=== PATIENT | male | born 1965 | race African-American/Black ===

== ENCOUNTER 2016-11-28 17:57 | Emergency (ER) | payer OTHER ==
[2016-11-28] MEDS ORDERED: IBUPROFEN 800 MG TABLET PO ONE (18:28)
--- NOTE | 2016-11-28 18:29 | ER Document Report ---
ED Medical Screen (RME) - General Chief Complaint: Heat Exposure Stated Complaint: POSSIBLE HEAT EXHAUSTION Time Seen by Provider: 11/28/16 18:21 Mode of Arrival: Wheelchair Information source: Patient Notes: 51-year-old male presents with complaints of generalized body aches feeling warm difficulty urinating and the cough I have greeted and performed a rapid initial assessment of this patient. A comprehensive ED assessment and evaluation of the patient, analysis of test results and completion of the medical decision making process will be conducted by additional ED providers. PHYSICAL EXAMINATION: GENERAL: Well-appearing, well-nourished and in no acute distress. Febrile HEAD: Atraumatic, normocephalic. EYES: Pupils equal round extraocular movements intact, conjunctiva are normal. ENT: Nares patent NECK: Normal range of motion LUNGS: No respiratory distress Musculoskeletal: Normal range of motion NEUROLOGICAL: Normal speech, normal gait. PSYCH: Normal mood, normal affect. SKIN: Warm, Dry, normal turgor, no rashes or lesions noted. TRAVEL OUTSIDE OF THE [place] IN LAST 30 DAYS: No - Related Data Allergies/Adverse Reactions: Penicillins Allergy (Verified 11/28/16 18:23) shellfish derived Allergy (Verified 11/28/16 18:23) Past Medical History Renal/ Medical History: Denies: Hx Peritoneal Dialysis GI Medical History: Reports: Hx Gastroesophageal Reflux Disease Physical Exam - Vital signs Vitals: Temp Pulse Resp BP Pulse Ox 100.5 F H 110 H 20 113/69 97 11/28/16 18:02 11/28/16 18:02 11/28/16 18:02 11/28/16 18:02 11/28/16 18:02 Course - Vital Signs Vital signs: Temp Pulse Resp BP Pulse Ox 100.5 F H 110 H 20 113/69 97 11/28/16 18:02 11/28/16 18:02 11/28/16 18:02 11/28/16 18:02 11/28/16 18:02
[2016-11-28 18:50] LABS: HEMATOCRIT 46.2 % (37.9-51.0); HEMOGLOBIN 14.9 g/dL (13.5-17.0); HGB HCT DIFFERENCE -1.5; MEAN CORPUSCULAR HEMOGLOBIN 24.5 pg (27.0-33.4); MEAN CORPUSCULAR HGB CONC 32.2 g/dL (32.0-36.0); MEAN CORPUSCULAR VOLUME 76 fl (80-97); RED BLOOD COUNT 6.08 10^6/uL (4.35-5.55); RED CELL DISTRIBUTION WIDTH 14.9 % (11.5-14.0); WHITE BLOOD COUNT 18.8 10^3/uL (4.0-10.5)
[2016-11-28 19:07] LABS: ALANINE AMINOTRANSFERASE 45 U/L (21-72); ALBUMIN 3.7 g/dL (3.5-5.0); ALKALINE PHOSPHATASE 78 U/L (38-126); ANION GAP 12 (5-19); ASPARTATE AMINO TRANSFERASE 27 U/L (17-59); BILIRUBIN,DIRECT 0.2 mg/dL (0.0-0.4); BILIRUBIN,TOTAL 1.1 mg/dL (0.2-1.3); BLOOD UREA NITROGEN 13 mg/dL (7-20); CALCIUM 8.6 mg/dL (8.4-10.2); CARBON DIOXIDE 24 mmol/L (22-30); CHLORIDE 101 mmol/L (98-107); CREATININE RESULT 1.13 mg/dL (0.52-1.25); GLUCOSE 99 mg/dL (75-110); LIPASE 80.8 U/L (23-300); POTASSIUM 3.7 mmol/L (3.6-5.0); SODIUM 136.8 mmol/L (137-145); TOTAL PROTEIN 6.4 g/dL (6.3-8.2)
[2016-11-28 19:08] LABS: BAND NEUTROPHILS % (MANUAL) 9 % (3-5); BASOPHILS % (MANUAL) 0 % (0-2); EOSINOPHILS % (MANUAL) 0 % (0-6); LYMPHOCYTES % (MANUAL) 6 % (13-45); TOTAL CELLS COUNTED 100
[2016-11-28 19:09] LABS: HYPOCHROMASIA 1+; MICROCYTOSIS 1+; OVALOCYTES SLIGHT; POIKILOCYTOSIS 1+; TARGET CELLS SLIGHT; TEAR DROP CELLS SLIGHT
--- NOTE | 2016-11-28 19:20 | RADIOLOGY REPORT (SQ) ---
EXAM DESCRIPTION: CHEST PA/LAT COMPLETED DATE/TIME: 11/28/2016 6:56 pm REASON FOR STUDY: cough fever COMPARISON: None. NUMBER OF VIEWS: Two view. TECHNIQUE: Frontal and lateral radiographic views of the chest acquired. LIMITATIONS: None. FINDINGS: LUNGS AND PLEURA: Peribronchial cuffing and interstitial changes. No consolidation, effus ion, or pneumothorax. MEDIASTINUM AND HILAR STRUCTURES: No masses. No contour abnormalities. HEART AND VASCULAR STRUCTURES: Heart normal in size and contour. No evidence for failure. BONES: No acute findings. HARDWARE: None in the chest. OTHER: No other significant finding. IMPRESSION: REACTIVE AIRWAY DISEASE VERSUS VIRAL SYNDROME. NO CONSOLIDATION. TECHNICAL DOCUMENTATION: JOB ID: [id number] [employer]- All Rights Reserved
[2016-11-28] MEDS ORDERED: NORMAL SALINE 1000 ML 1,000 ML IV ONE (19:59)
[2016-11-28] MEDS ORDERED: DOXYCYCLINE HYCLATE 100 MG TABLET PO ONE (20:00)
--- NOTE | 2016-11-28 20:00 | ER Document Report ---
ED General - General Chief Complaint: Heat Exposure Stated Complaint: POSSIBLE HEAT EXHAUSTION Time Seen by Provider: 11/28/16 18:21 Mode of Arrival: Wheelchair Notes: Patient is a 51-year-old male without past medical history who presents with 24 hours of general malaise, body aches, headache and a feeling of chills. Patient had similar symptoms in the past with heat exhaustion and does work outside on a regular basis. She has been trying to treat his symptoms by drinking plenty of water but this has not helped. Nothing worsens his symptoms. He denies any cough, shortness of breath, neck pain, altered mental status, weakness, numbness, pain with urination, abdominal pain or any rashes or lesions. He does work outside regularly and states that he has been frequently exposed to ticks and other insects. He describes his headache as a dull, mild headache in the bifrontal region. This has been gradual in onset. It got progressively worse since starting but has now improved after receiving ibuprofen. No known sick contacts. He has not seen his primary care doctor regarding today's concerns. TRAVEL OUTSIDE OF THE [place] IN LAST 30 DAYS: No - Related Data Allergies/Adverse Reactions: Penicillins Allergy (Verified 11/28/16 18:23) shellfish derived Allergy (Verified 11/28/16 18:23) Past Medical History - General Information source: Patient - Social History Smoking Status: Never Smoker Frequency of alcohol use: None Drug Abuse: None Lives with: Spouse/Significant other Family History: Reviewed & Not Pertinent Patient has suicidal ideation: No Patient has homicidal ideation: No Renal/ Medical History: Denies: Hx Peritoneal Dialysis GI Medical History: Reports: Hx Gastroesophageal Reflux Disease Review of Systems - Review of Systems Notes: Constitutional: Positive for fever. HENT: Negative for sore throat. Eyes: Negative for visual changes. Cardiovascular: Negative for chest pain. Respiratory: Negative for shortness of breath. Gastrointestinal: Negative for abdominal pain, vomiting or diarrhea. Genitourinary: Negative for dysuria. Musculoskeletal: Negative for back pain. Skin: Negative for rash. Neurological: Positive for headaches, negative for weakness or numbness. 10 point ROS negative except as marked above and in HPI. Physical Exam - Vital signs Vitals: Temp Pulse Resp BP Pulse Ox 100.5 F H 110 H 20 113/69 97 11/28/16 18:02 11/28/16 18:02 11/28/16 18:02 11/28/16 18:02 11/28/16 18:02 Interpretation: Tachycardic, Febrile Notes: PHYSICAL EXAMINATION: GENERAL: Well-appearing, well-nourished and in no acute distress. HEAD: Atraumatic, normocephalic. EYES: Pupils equal round and reactive to light, extraocular movements intact, sclera anicteric, conjunctiva are normal. ENT: nares patent, oropharynx clear without exudates. Mildly dry mucous membranes. NECK: Normal range of motion, supple without lymphadenopathy, no nuchal rigidity. Full flexion extension without any discomfort. LUNGS: Breath sounds clear to auscultation bilaterally and equal. No wheezes rales or rhonchi. HEART: Regular rate and rhythm without murmurs ABDOMEN: Soft, nontender, normoactive bowel sounds. No guarding, no rebound. No masses appreciated. EXTREMITIES: Normal range of motion, no pitting or edema. No cyanosis. NEUROLOGICAL: No focal neurological deficits. Moves all extremities spontaneously and on command. PSYCH: Normal mood, normal affect. SKIN: Warm, Dry, normal turgor, no rashes or lesions noted. Course - Re-evaluation Re-evalutation: 11/28/16 19:56 Patient presents with 24 hours of generalized body aches, nausea without vomiting, a mild bifrontal headache, and fever. States he feels like he has in the past had heat exhaustion although he does not clinically appear dehydrated on exam. Laboratories are remarkable for leukocytosis with an associated bandemia patient has no obvious infectious source on exam. Chest x-ray is clear without evidence of a pneumonia. He is clinically unlikely to have a urinary tract infection as he has no risk factors for this and denies any dysuria. He has no focal abdominal pain to suggest an acute intra-abdominal pathology is a trigger for today's symptoms and vital sign derangements. Specifically has no pain to the right lower quadrant or right upper quadrant to suggest an acute appendicitis or biliary pathology. No risk factors for mesenteric ischemia and again he denies any significant abdominal pain. Low clinical suspicion for a meningitis as patient denies any neck pain or meningismus, and is without any altered mental status, photophobia or phonophobia. He does complain of a very mild bifrontal headache which is similar to headaches he has had in the past and has resolved with iubuprofen. In agreement with avoiding LP at this time given low clinical likelyhood for bacterial meningitis or encephalitis. 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 11/28/16 21:24 Patient continues to remain clinically well in appearance. Will plan for empiric treatment with doxycycline for 14 days and close outpatient follow-up. I have reviewed at length with the patient that he needs to return to the emergency department immediately should have clinical worsening of his symptoms particularly his headache, or any confusion that could indicate that he is clinically worsening and could possibly require inpatient admission. At this time will discharge with return precautions and follow-up recommendations. Verbal discharge instructions given a the bedside and opportunity for questions given. Medication warnings reviewed. Patient is in agreement with this plan and has verbalized understanding of return precautions and the need for primary care follow-up in the next 24-72 hours. - Vital Signs Vital signs: Temp Pulse Resp BP Pulse Ox 100.5 F H 110 H 18 118/68 98 11/28/16 18:02 11/28/16 18:02 11/28/16 21:46 11/28/16 21:46 11/28/16 21:46 - Laboratory Result Diagrams: 11/28/16 18:42 11/28/16 18:42 Laboratory results interpreted by me: 11/28/16 11/28/16 18:42 18:42 WBC 18.8 H RBC 6.08 H MCV 76 L MCH 24.5 L RDW 14.9 H Seg Neuts % (Manual) 82 H Band Neutrophils % 9 H Lymphocytes % (Manual) 6 L Monocytes % (Manual) 2 L Abs Neuts (Manual) 17.1 H Sodium 136.8 L - Diagnostic Test Radiology reviewed: Image reviewed, Reports reviewed Radiology results interpreted by me: 11/28/16 20:00 Chest x-ray: No acute infiltrate or pneumothorax Discharge - Discharge Clinical Impression: Fever of undetermined origin, [place] spotted fever Condition: Good Disposition: HOME, SELF-CARE Additional Instructions: The exact cause of your symptoms today is uncertain, but given what we have discussed today your being empirically treated with doxycycline for [place] Spotted fever. This is a tickborne illness that is very common in [place]. Please take all the antibiotics even if you are feeling better. Please return to the emergency department immediately if you develop worsening of your headache, confusion, persistent vomiting, or have any other symptoms that are worrisome to you. Please follow-up with your primary care doctor in the next 24-48 hours. Prescriptions: Doxycycline Hyclate 100 mg PO BID #28 capsule
[2016-11-28 21:20] LABS: APPEARANCE,URINE CLEAR; BILIRUBIN,URINE NEGATIVE (NEGATIVE); GLUCOSE, URINE NEGATIVE (NEGATIVE); KETONES,URINE NEGATIVE (NEGATIVE); LEUKOCYTE ESTERASE,URINE NEGATIVE (NEGATIVE); NITRITE,URINE NEGATIVE (NEGATIVE); PROTEIN,URINE NEGATIVE (NEGATIVE); URINE SPECIFIC GRAVITY 1.011; UROBILINOGEN,URINE NEGATIVE mg/dL (<2.0)
[2016-11-28 22:04] VITALS: BP 118/68
== END 2016-11-28 22:04 | disposition home or self-care (01) ==
LOC: ER 17:57
DX: A77.0 Spotted fever due to Rickettsia rickettsii (principal); R53.81 Other malaise; R51 Headache; R11.0 Nausea; Z88.0 Allergy status to penicillin; Z91.013 Allergy to seafood
CPT/HCPCS: 99284; 96360; 36415; 87040; 83690; 85025; 80053; 81001; 71020; J7030